=== PATIENT | male | born 1955 | race Caucasian/White ===

== ENCOUNTER → 2020-08-01 | Outpatient (CLI) | payer SELFPAY ==
--- NOTE | 2020-08-01 12:10 | Diagnostic Imaging Report ---
EXAMINATION: CT calcium scoring without contrast. TECHNIQUE: Multiple contiguous axial images were obtained through the chest without the use of intravenous contrast for purposes of calcium scoring. All CT scans use one or more of the following dose optimizing techniques: automated exposure control, MA and/or KvP adjustment based on a patient size and exam type, or iterative reconstruction. HISTORY: Hypertension, diabetes, high cholesterol COMPARISON: None available. FINDINGS: The calculated coronary artery calcium score is 441. There is no edema or pneumonia. No pleural effusion. No pneumothorax. No suspicious nodules. Heart size is normal. No pericardial effusion. Aorta is normal in caliber. There is no axillary or supraclavicular lymphadenopathy. There is no mediastinal lymphadenopathy. Limited views of the upper abdomen are unremarkable. There are no suspicious osseus lesions. IMPRESSION: 1. Calculated coronary artery calcium score of 441, placing the patient at approximately 75th percentile. Dictated by: Dictated on workstation # [id number]
== END ==
LOC: RAD FS 10:59
PROVIDERS: ATTEND Family Medicine
DX: Z13.6 Encounter for screening for cardiovascular disorders (principal); I10 Essential (primary) hypertension; E11.9 Type 2 diabetes mellitus without complications; E78.00 Pure hypercholesterolemia, unspecified
CPT/HCPCS: 75571

== ENCOUNTER → 2021-01-22 | Outpatient (CLI) | payer MEDICARE, BC ==
--- NOTE | 2021-01-22 17:44 | Diagnostic Imaging Report ---
CT Lung Screening INDICATION: [id number] smoking history, cessation one year ago. TECHNIQUE: Noncontrast, low-dose CT imaging performed according to the lung cancer screening protocol. Auto Exposure Controls were utilized during the CT exam to meet ALARA standards for radiation dose reduction. COMPARISON: Baseline torso protocol study. We are correlating with visualized portions of the chest obtained at CT calcium scoring limited exam 08/01/2020. FINDINGS: There is symmetrical air trapping with features of diffuse centrilobular emphysema. No lung nodule or dominant lung mass. No findings of lung cancer. There is no thoracic adenopathy. No evidence for edema or pneumonia. No effusion or pneumothorax. The aorta is nonaneurysmal. There are aortic and coronary artery atherosclerotic vascular calcifications. Visualized upper abdomen is nonacute. IMPRESSION: Centrilobular emphysema and nonaneurysmal atherosclerotic calcifications; however, no findings to suggest lung cancer or acute abnormalities. LUNG-RADS CATEGORY: 1 MODIFIER: None. OTHER SIGNIFICANT FINDINGS: As above. Dictated on workstation # [id number]
== END ==
LOC: RAD 13:45
PROVIDERS: ATTEND Family Medicine
DX: Z12.2 Encounter for screening for malignant neoplasm of respiratory organs (principal); J43.2 Centrilobular emphysema; I25.10 Atherosclerotic heart disease of native coronary artery without angina pectoris; Z87.891 Personal history of nicotine dependence
CPT/HCPCS: 71271